=== PATIENT | male | born 2000 | race Caucasian/White ===

== ENCOUNTER → 2020-08-28 08:06 | Outpatient (CLI) | payer OTHER, BC, SELFPAY ==
--- NOTE | 2020-08-28 08:11 | DI.RAD.S_ITS ---
PROCEDURE: XR FOOT RT MIN 3V INDICATIONS: R foot pain TECHNIQUE: 3 views of the foot were acquired. COMPARISON: None. FINDINGS: Bones: No fractures or dislocations. No suspicious bony lesions. Joint spaces maintained without significant arthritic features demonstrated. Soft tissues: No tibiotalar joint effusion. Achilles tendon appears normal. IMPRESSION: No acute finding or significant degenerative change. Dictated by: Andre Carpenter M.D. on 08/28/2020 at 8:35 Approved by: Andre Carpenter M.D. on 08/28/2020 at 8:35
== END ==
PROVIDERS: Referring Provider Physician Assistant; Visit Provider Physician Assistant
DX: M79.671 Pain in right foot (principal)
CPT/HCPCS: 73630

== ENCOUNTER 2021-12-02 22:40 | Emergency (ER) | payer OTHER, SELFPAY ==
[2021-12-02 22:44] VITALS: BP 147/91; PULSE 102; RESP 20; TEMP 36.6; O2SAT 97; BMI 43.8
--- NOTE | 2021-12-02 23:01 | DI.US.S_ITS ---
PROCEDURE: US SCROTUM INDICATIONS: PAIN TECHNIQUE: Real-time scanning was performed of the scrotum and testicles, with image documentation. Color and pulse Doppler interrogation was performed of both testicles. COMPARISON: None. FINDINGS: Right: Testicle measures 4.9 x 2.5 x 3.3 cm and appears homogenous in echotexture. Epididymis is normal in overall size and morphology. No hydrocele or varicoceles. Overlying scrotal skin is normal in thickness. Left: Testicle measures 5.0 x 2.8 x 3.3 cm and appears homogeneous in echotexture. Epididymis is normal in overall size and morphology. No hydrocele or varicoceles. Overlying scrotal skin is normal in thickness. Doppler: Color and pulse Doppler demonstrate normal and symmetric arterial flow in both testicles. IMPRESSION: 1. No acute sonographic abnormality identified in the scrotum. Specifically, no evidence of testicular torsion. Dictated by: Lucas Albarran M.D. on 12/03/2021 at 0:45 Approved by: Lucas Albarran M.D. on 12/03/2021 at 0:46
[2021-12-02 23:14] LABS: Appearance Urine UA CLEAR; Bilirubin Urine UA NEGATIVE (NEGATIVE); Color Urine UA YELLOW; Glucose Urine UA NEGATIVE (Negative); Ketones Urine UA NEGATIVE (NEGATIVE); Leukocyte Esterase Urine UA NEGATIVE (NEGATIVE); Nitrite Urine UA NEGATIVE (Negative); Occult Blood Urine UA NEGATIVE (Negative); Protein Urine UA TRACE (Negative); Specific Gravity Urine UA 1.015 (1.000-1.035); Urobilinogen Urine UA 0.2 E.U./dL (0.2); pH Urine UA 5.5 (4.5-8.0)
[2021-12-02 23:31] LABS: Bacteria Urine Few (2-10); Culture Indicated Urine Cult Not Indicated; Mucus Urine 1+ (Negative); RBC Urine None Seen (0-5/HPF); Squamous Epithelial Cell Urine 0-1 /HPF (0-5/HPF); WBC Urine None Seen (0-5/HPF)
[2021-12-03 00:43] LABS: Urine N gonorrhoeae NOT DETECTED
[2021-12-03 00:44] LABS: Urine Chlamydia NOT DETECTED
--- NOTE | 2021-12-03 02:07 | ED.MALEGU ---
HPI - Male Genitourinary General Chief complaint: Urogenital-Male Stated complaint: Testicular swelling Time Seen by Provider: 12/02/21 23:01 Source: patient Mode of arrival: Ambulatory Limitations: no limitations History of Present Illness HPI Narrative: This is a 21-year-old male with no known medical issues, no daily medications patient has had in his left testicle starting in the morning on the 15th, patient states it has been persistent throughout the day he thought the left testicle seemed a little bit more swollen. Denies fevers or chills. No nausea or vomiting. No chest pain or shortness of breath. No abdominal or flank pain. Patient denies any dysuria, urgency frequency incontinence or penile discharge. He denies any discomfort in the right testicle. He states this has happened before but will last an hour 2 and then resolve. He states it is [id number] pain. He defers anything for pain here. Patient states he is not sexually active at this time. Related Data Allergies Allergy/AdvReac Type Severity Reaction Status Date / Time No Known Drug Allergies Allergy Unverified 08/28/20 07:48 Review of Systems Review of Systems ROS Unobtainable: All systems reviewed & are unremarkable except as noted in HPI and below Patient History Social History Smoking Status: Never smoker Smoking Status: Never smoker alcohol intake frequency: holidays/special occasions only Substance Use Type: does not use Exam Narrative Exam Narrative: GENERAL: Alert and oriented x three, male with BMI of 43 mild distress HEENT: Head normocephalic, atraumatic, EOMI, pupils reactive, face symmetric, moist mucous membranes NECK: Supple, full range of motion CARDIOVASCULAR: Regular rate and rhythm without murmurs, rubs or gallops. RESPIRATORY: Breath sounds equal bilaterally, no wheezes rales or rhonchi. ABDOMEN: Soft, nontender. Normoactive bowel sounds all 4 quadrants. No guarding or rebound, rigidity, no mass : No CVA tenderness. Male: Patient has buried penis, no penile discharge or lesions, testicles non-tender, cremasteric reflex intact, no inguinal hernias noted. Rash care erythema or other lesions noted EXTREMITIES: Normal range of motion, no clubbing or edema. Neurovascularly intact NEUROLOGICAL: Cranial nerves II through XII grossly intact. Moving all extremities SKIN: Warm, dry, no petechiae, no rashes or lesions. Initial Vital Signs Initial Vital Signs: Vital Signs Temperature 97.9 F 12/02/21 22:44 Pulse Rate 102 H 12/02/21 22:44 Respiratory Rate 20 12/02/21 22:44 Blood Pressure 147/91 H 12/02/21 22:44 Pulse Oximetry 97 12/02/21 22:44 Oxygen Delivery Method 12/02/21 22:44 Course Orders Ordered: ED Orders 12/02/21 23:01 US scrotum Stat 12/02/21 23:12 Chlamydia Gonorrhea PCR -URINE Stat UA Complete [Urinalysis and Microscopic] Stat 12/03/21 02:08 Urine Culture Stat Vital Signs Vital signs: Vital Signs - 8 hr 12/02/21 22:44 12/03/21 02:29 Temperature 97.9 F Pulse Rate 102 H 99 H Respiratory Rate 20 20 Blood Pressure 147/91 H 139/89 Pulse Oximetry 97 97 Oxygen Delivery Method Room Air Room Air MDM - Male Genitourinary Lab Data Labs: Lab Results 12/02/21 12/02/21 Range/Units 23:12 23:12 Urine Color Yellow Urine Appearance Clear Urine pH 5.5 (4.5-8.0) Ur Specific [place] 1.015 (1.000-1.035) Urine Protein Trace H (Negative) Urine Glucose (UA) Negative (Negative) g/dL Urine Ketones Negative (NEGATIVE) Urine Occult Blood Negative (Negative) Urine Nitrate Negative (Negative) Urine Bilirubin Negative (NEGATIVE) Urine Urobilinogen 0.2 (0.2) E.U./dL Ur Leukocyte Esterase Negative (NEGATIVE) Urine RBC None seen (0-5/HPF) Urine WBC None seen (0-5/HPF) Ur Squamous Epith Cells 0-1 /hpf (0-5/HPF) Urine Bacteria Few (2-10) H (None) Urine Mucus 1+ H (Negative) Ur Culture Indicated? Cult not indicated Ur Chlamydia DNA (PCR) Not detected N gonorrhoeae DNA (PCR) Not detected Imaging Data US scrotum: Radiologist's Impression: Luis Tracy??21??M??2000 ? Allergy/Adv: No Known Drug Allergies Close Scrotum Ultrasound (Signed) Lucas Albarran - 12/02/21 Foot X-Ray (Signed) Andre Carpenter - 08/28/20 Launch?[address] [address] Ultrasound Report Signed Patient: Luis Tracy MR#: [id number] : 2000 Acct:[id number] Age/Sex: 21 / M Date of Service: 12/02/21 Loc: ED Accession Number: [id number] ?? Procedure: US scrotum Ordering Provider: Antonette Campos D.O. PROCEDURE:? US SCROTUM ? INDICATIONS:? PAIN ? TECHNIQUE:? Real-time scanning was performed of the scrotum and testicles, with image documentation.? Color and pulse Doppler interrogation was performed of both testicles.? ? COMPARISON:? None. ? FINDINGS:? ? Right:? Testicle measures 4.9 x 2.5 x 3.3 cm and appears homogenous in echotexture.? Epididymis is normal in overall size and morphology.? No hydrocele or varicoceles.? Overlying scrotal skin is normal in thickness.? ? Left:? Testicle measures 5.0 x 2.8 x 3.3 cm and appears homogeneous in echotexture.? Epididymis is normal in overall size and morphology.? No hydrocele or varicoceles.? Overlying scrotal skin is normal in thickness.? ? Doppler:? Color and pulse Doppler demonstrate normal and symmetric arterial flow in both testicles.? ? IMPRESSION:? ? 1. No acute sonographic abnormality identified in the scrotum.? Specifically, no evidence of testicular torsion.? ? Dictated by: Lucas Albarran M.D. on 12/03/2021 at 0:45 ? ? Approved by: Lucas Albarran M.D. on 12/03/2021 at 0:46 MDM Narrative Medical decision making narrative: 21-year-old male with complaint of left testicular pain nontender on examination patient describes it as [id number] defers anything for pain. Ultrasound overall is reassuring, urine shows a few bacteria but no nitrates, no leuks and sent for culture. Urine GC is negative. Patient's exam is overall reassuring discussed watchful waiting, with urology if persisting and return precautions discussed as well. Discharge Plan Departure Patient Disposition: Home Clinical Impression: Pain in left testicle Instructions: DI for Testicular Pain Activity Restrictions/Additional Instructions: Please follow-up if you are having persistent pain, can follow up with primary care or more preferably urology. Contact information is included below. If your pain resolves in your not having any additional issues you do not have to follow-up. A urine culture is pending if positive we would reach out to you to start antibiotics. This usually takes 48-72 hours. You can take Tylenol up to a 1000 mg every 6 hours and/or ibuprofen up to 800 mg every 8 hours as needed for pain Please return for fevers, rapidly worsening pain, new color changes, swelling, difficulty or painful urination, frequency, new abdominal back or flank pain or other new or concerning symptoms. Referrals: Gogo Mai MD [Physician] - Miscellaneous,MD Domingo [Primary Care Provider] - Visit Report Forms: Patient Portal/API
[2021-12-03 02:29] VITALS: BP 139/89; PULSE 99; RESP 20; O2SAT 97
== END 2021-12-03 02:30 | disposition home or self-care (01) ==
PROVIDERS: Emergency Provider Emergency Medicine
DX: N50.812 Left testicular pain (principal)
CPT/HCPCS: 76870; 81001; 87086; 87491; 87591; 99281; 99283